=== PATIENT | female | born 1980 | race Caucasian/White ===

== ENCOUNTER 2018-11-21 08:24 | Inpatient (IN) | payer BC ==
[~2018-11-21 08:24] MED LIST: Dexamethasone 4 MG/ML SDV ONE; Glycopyrrolate 0.2 MG/ML 5 ML MDV ONE; Ketamine 50 MG in Sodium Chloride 0.9% 49.5 ML IV SCH; Ketamine 500 MG/5 ML MDV IV SCH; Lidocaine 2% 100 MG/5 ML Syringe IVPUSH SCH; Neostigmine Methylsulfate 1 MG/ML 5 ML Syringe ONE; Ondansetron 4 MG/2 ML SDV ONE; Propofol 200 MG/20 ML SDV ONE; Rocuronium 50 MG/5 ML Vial ONE; Succinylcholine 200 MG/10 ML MDV ONE; cefOXitin 2 GM Vial ONE; fentaNYL 250 MCG/5 ML SDV ONE
[2018-11-21] MEDS ORDERED: Lactated Ringers 1,000 ML ONE (08:28)
[2018-11-21] MEDS ORDERED: Gabapentin 300 MG Cap PO ONE (08:45)
[2018-11-21] MEDS ORDERED: Scopolamine 1.5 MG Transdermal Patch TOP ONE (08:45)
[2018-11-21] MEDS ORDERED: Celecoxib 200 MG Cap PO ONE (08:45)
[2018-11-21] MEDS ORDERED: Acetaminophen 500 MG Tab PO ONE (08:45)
[2018-11-21] MEDS ORDERED: Dextrose 5%-Lactated Ringers 1,000 ML IV SCH (09:00)
[2018-11-21] MEDS ORDERED: Albuterol/Ipratropium 3.0-0.5 MG/3 ML Neb Soln NEB ONE (09:30)
[2018-11-21] MEDS ORDERED: cefOXitin 2 GM in Sodium Chloride 0.9% 50 ML IV ONE (10:00)
[2018-11-21] MEDS ORDERED: fentaNYL 100 MCG/2 ML SDV ONE ×2 (10:57→12:06)
[2018-11-21] MEDS ORDERED: HYDROmorphone 0.5 MG/0.5 ML Syringe IVPUSH PRN (13:51)
[2018-11-21] MEDS ORDERED: Albuterol/Ipratropium 3.0-0.5 MG/3 ML Neb Soln INH PRN (13:51)
[2018-11-21] MEDS ORDERED: HYDROmorphone 1 MG/ML Syringe IV PRN (13:51)
[2018-11-21] MEDS ORDERED: Ondansetron 4 MG/2 ML SDV IVPUSH PRN (13:53)
[2018-11-21] MEDS ORDERED: hydrOXYzine HCl 100 MG/2 ML SDV IM PRN (13:56)
[2018-11-21] MEDS ORDERED: Metoclopramide 10 MG/2 ML SDV IVPUSH PRN (13:56)
[2018-11-21] MEDS ORDERED: diphenhydrAMINE 50 MG/ML SDV IVPUSH PRN (13:56)
[2018-11-21] MEDS ORDERED: Labetalol 20 MG/4 ML Syringe IVPUSH PRN (13:56)
[2018-11-21] MEDS: Albuterol/Ipratropium 3.0-0.5 MG/3 ML Neb Soln INH SCH ×2 (15:20→21:10)
[2018-11-21] MEDS: Lidocaine 0.4%/D5W 2 GM/500 ML BAG IV SCH (15:52)
[2018-11-21] MEDS ORDERED: MVI, Adult with Vitamin K 10 ML, Thiamine 200 MG, Chromium/Copper/Mang/Selen/Zn 1 ML in... IV SCH ×4 (16:00)
[2018-11-21] MEDS ORDERED: Pantoprazole 40 MG Vial IVPUSH SCH (16:00)
[2018-11-21] MEDS: Gabapentin 250 MG/5 ML Solution ML 470 ML Bottle PO SCH ×2 (16:12→21:11)
[2018-11-21] MEDS: Acetaminophen 325 MG Tab PO SCH ×2 (16:12→21:12)
[2018-11-21] MEDS: cefOXitin 2 GM in Sodium Chloride 0.9% 50 ML IV SCH ×2 (16:22→22:09)
[2018-11-21] MEDS: Heparin Sodium 5,000 Units/ML Vial SUBCUT SCH (19:24)
[2018-11-21] MEDS: Montelukast 10 MG Tab PO SCH (21:12)
[2018-11-21] MEDS: Dextrose 5%-Lactated Ringers 1,000 ML IV SCH (22:11)
[2018-11-22] MEDS ORDERED: Iopamidol 510 MG/ML 50 ML SDV PO ONE (03:01)
[2018-11-22] MEDS: Acetaminophen 325 MG Tab PO SCH ×4 (03:59→21:46)
[2018-11-22] MEDS: cefOXitin 2 GM in Sodium Chloride 0.9% 50 ML IV SCH (04:23)
[2018-11-22] MEDS: Dextrose 5%-Lactated Ringers 1,000 ML IV SCH (04:23)
[2018-11-22] MEDS: Albuterol/Ipratropium 3.0-0.5 MG/3 ML Neb Soln INH SCH ×4 (07:46→20:55)
[2018-11-22] MEDS ORDERED: Dextrose 5%-Lactated Ringers 1,000 ML IV SCH (08:00)
[2018-11-22] MEDS: FLUoxetine 20 MG Cap PO SCH (09:02)
[2018-11-22] MEDS: Celecoxib 200 MG Cap PO SCH (09:03)
[2018-11-22] MEDS: Heparin Sodium 5,000 Units/ML Vial SUBCUT SCH ×2 (09:03→19:41)
[2018-11-22] MEDS: Gabapentin 250 MG/5 ML Solution ML 470 ML Bottle PO SCH ×3 (09:03→20:43)
[2018-11-22] MEDS: SCOPOLAMINE PATCH CHECK TOP SCH (09:03)
--- NOTE | 2018-11-22 09:34 | CRLCR ---
INDICATION: Postoperative gastric bypass. TECHNIQUE: Two upright abdomen views are obtained following swallowing of oral contrast. The radiographs are performed 15 minutes apart. FINDINGS: Surgical drain is present in left upper quadrant. Oral contrast opacifies the lower esophagus, and the gastric pouch on the initial view. On the 15 minute delayed radiograph, oral contrast has cleared from the lower esophagus and opacifies the small bowel in the mid abdomen and left lower abdomen. No evidence of contrast extravasation from the lumen of gastrointestinal tract. Metallic surgical clips are seen in the right upper quadrant. Impression: No apparent bowel obstruction nor postoperative complication evident. Dictated by Yunier Houston MD @ Nov 22 2018 9:29AM Signed by Dr. Yunier Houston @ Nov 22 2018 9:33AM
[2018-11-22] MEDS: Lidocaine 0.4%/D5W 2 GM/500 ML BAG IV SCH (11:19)
[2018-11-22] MEDS: MVI, Adult with Vitamin K 10 ML, Thiamine 200 MG, Chromium/Copper/Mang/Selen/Zn 1 ML in... IV SCH ×8 (14:49→15:39)
[2018-11-22] MEDS ORDERED: Pantoprazole 40 MG Delayed-Release Granules 1 Packet PO SCH (16:00)
[2018-11-22] MEDS: Montelukast 10 MG Tab PO SCH (20:55)
[2018-11-23] MEDS: Acetaminophen 325 MG Tab PO SCH ×2 (03:25→09:36)
[2018-11-23] MEDS: Albuterol/Ipratropium 3.0-0.5 MG/3 ML Neb Soln INH SCH ×2 (08:13→10:38)
[2018-11-23] MEDS ORDERED: Cyanocobalamin (Vitamin B12) 1,000 MCG/ML SDV IM ONE (09:00)
[2018-11-23] MEDS: Celecoxib 200 MG Cap PO SCH (09:36)
[2018-11-23] MEDS: Heparin Sodium 5,000 Units/ML Vial SUBCUT SCH (09:36)
[2018-11-23] MEDS: Gabapentin 250 MG/5 ML Solution ML 470 ML Bottle PO SCH (09:36)
[2018-11-23] MEDS: SCOPOLAMINE PATCH CHECK TOP SCH (09:37)
[2018-11-23] MEDS: FLUoxetine 20 MG Cap PO SCH (09:37)
--- NOTE | 2018-11-24 10:41 | DISCH ---
FINAL DIAGNOSES: 1. Morbid obesity. 2. Marked hepatomegaly. 3. Paraesophageal diaphragmatic hernia associated with mediastinal lipoma. 4. History of asthma. 5. History of depression. OPERATIVE PROCEDURES: These were done on 11/21/2018. 1. Laparoscopic sleeve gastrectomy. 2. Nam-Cut needle liver biopsy. 3. Repair of paraesophageal diaphragmatic hernia. 4. Excision of mediastinal lipoma. SUMMARY: This is a 38-year-old presenting with longstanding morbid obesity and increasingly significant comorbidities. After preoperative evaluation and discussion, the patient wished to proceed with a sleeve gastrectomy. This was done on the date of procedure along with the additional concurrent procedures as listed above. Postoperatively, her oral intake was a little bit slow, but appeared to be satisfactory. At this point, we will discharge and she will be sent home with only Tylenol and Celebrex for pain which is what she is going to require postoperatively. Otherwise, she will be continuing her usual home medications, but the vitamin supplements need to be held until after 1st appointment. She will be instructed to stay on a step-2 diet for 1 month postoperatively, i.e., until 12/21/2018 and follow up with Kecia Mejia at [facility] on 12/01/2018 at 10:30.
--- NOTE | 2018-11-24 13:41 | OR ---
DATE OF PROCEDURE: 11/21/2018 SURGEON: Jose Fontaine MD PREOPERATIVE DIAGNOSIS: Morbid obesity. POSTOPERATIVE DIAGNOSES: 1. Morbid obesity. 2. Marked hepatomegaly. 3. Paraesophageal diaphragmatic hernia. 4. Mediastinal lipoma. OPERATIVE PROCEDURES: Diagnostic laparoscopy with: 1. Laparoscopic sleeve gastrectomy (69548). 2. Nam-Cut needle liver biopsy (39199). 3. Repair of paraesophageal diaphragmatic hernia (26612). 4. Excision of mediastinal lipoma (11654). ANESTHESIA: General. WELDING PANTOGRAPH OPERATOR: Kecia Mejia PA-C. INDICATION FOR PROCEDURE: This is a 38-year-old female presenting with longstanding morbid obesity and increasingly significant comorbidities. After preoperative evaluation and discussion, she wished to proceed with a sleeve gastrectomy. Potential risks of procedure including bleeding, infection, leaks from staple line, as well as the possibility of cardiopulmonary, septic, or hemorrhagic complications leading to were discussed, and the patient wishes to proceed. DETAILS OF PROCEDURE: The patient was taken to the operating room and placed in a supine position. After general endotracheal anesthesia was induced, she was converted to a lithotomy position and the abdomen prepped and draped. At 15 cm inferior and 5 cm left of the xiphoid process, a transverse incision was made and the peritoneal cavity entered under direct vision with an Optiview trocar, inflated to 15 mmHg pressure with CO2. Laparoscope was then reinserted. No underlying trocar insertion site injuries were seen. Five additional trocars were then placed across the mid abdomen and bilateral transversus abdominis plane blocks were placed. Additional inspection showed a marked hepatomegaly with the liver being roughly 2 to 3 times normal in size and grossly fatty infiltrated. Given this, Nam-Cut needle biopsy was obtained from left lobe of liver. Minimal bleeding from the biopsy site was controlled with electrocautery. The liver was then retracted anteriorly. The patient was noted to have a moderate-sized paraesophageal diaphragmatic hernia with prolapse of some perigastric fat and some of the fundus in a plane anterior to the course of the esophagus. The peritoneum overlying this was incised and the hernia reflected downward. During the course of the dissection of the diaphragmatic hernia, a mediastinal lipoma was encountered and this was excised to facilitate more adequate closure of the defect, which was then closed with 0 Ethibond sutures reinforced with PTFE pledgets. Beginning in the mid greater curvature, the omentum was then divided away from the stomach with Harmonic Scalpel. This was continued upward to include the highest and posterior short gastric vessels. The tissue along the left rochelle of the diaphragm was dissected free to avoid any excess stomach to be left in place in that area. The omentum was then divided distally from the mid greater curvature initially with Harmonic scalpel. As it became more thick, it was divided with ROHINI mesenteric loads and was continued up to 0.2 cm proximal to the pylorus. The resection phase then began after marking out the stomach such that there would not be an overtightening of the area of incisura angularis. The first 3 firings were standard ROHINI black loads beginning 2 cm proximal to the pylorus and extending underneath the incisura angularis. Following these initial 3 firings, a 32-Cuban suction tube was then placed orally per Anesthesia and positioned along the lesser curvature of the stomach and from there into the antrum, after which, positioned against the lesser curvature of stomach, suction was applied, and the remainder of the gastrectomy resection continued with a combination of reinforced black and purple loads. At the apex of the resection, the division extended slightly off of the stomach, so as to avoid stapling onto the esophagus. At that point, the staple line was inspected. To limit the chance of leaks at the area of the esophagogastric junction and proximal stomach, 2 [id number] seromuscular stitches were then placed using 0 Ethibond sutures. The entire staple line was then reinforced with fibrin sealant focusing on the distal and proximal ends. Omentum was then placed along the entire length of the staple line with the fibrin sealant that stayed in place without sutures. With the duodenum then being compressed and the suction tube now off suction, air was injected into the stomach, and with the gastrectomy staple line being submerged with antibiotic-containing saline solution, there were no leaks or other problems evident. The gastric specimen was then delivered through the left lateral trocar site, and at that point, no further problems were noted. A single Álvaro-Lee drain was taken from the left lateral trocar site up to the area of the esophagogastric junction, from there into the splenic fossa. The trocars were then sequentially removed and peritoneal cavity deflated. Incisions were closed with some 4-0 Vicryl skin stitch, which was also used to affix the drain. The patient was taken to the recovery room in satisfactory condition. Physician prosthetic assistant, Kecia Mejia, played an essential role in assisting in this case helping to position the patient, retract structures as needed, as well as suturing and cutting sutures when indicated. Her presence improved the patient's safety and decreased operative time. Jose Fontaine MD /[id number]
--- NOTE | 2018-11-24 13:56 | PN ---
DATE OF SERVICE: 11/22/2018 The patient is postop day #1 from a laparoscopic sleeve gastrectomy and diaphragmatic hernia repair. Clinically, she has had no major problems. Her pain control is satisfactory without additional narcotics, and urine output has been quite good. We will go up to a step- 2 diet today, restart her Prozac, and then maximize activity and work with pulmonary toilet. She may be ready for discharge home tomorrow. Jose Fontaine MD /[id number]
== END 2018-11-23 11:35 | disposition home or self-care (01) | DRG 403 ==
LOC: JP.SDS 08:24 → JP.MS 08:24 → EDSTATUS 11:00 → JP.MS 13:35
PROVIDERS: ADMIT Surgery; ATTEND Surgery
PROC: 0DB64Z3 Excision of Stomach, Percutaneous Endoscopic Approach, Vertical (ICD-10-PCS; principal; 2018-11-21)
PROC: 0FB24ZX Excision of Left Lobe Liver, Percutaneous Endoscopic Approach, Diagnostic (ICD-10-PCS; 2018-11-21)
PROC: 0WBC4ZZ Excision of Mediastinum, Percutaneous Endoscopic Approach (ICD-10-PCS; 2018-11-21)
PROC: 0BQT4ZZ Repair Diaphragm, Percutaneous Endoscopic Approach (ICD-10-PCS; 2018-11-21)
DX: E66.01 Morbid (severe) obesity due to excess calories (principal); R16.0 Hepatomegaly, not elsewhere classified; K44.9 Diaphragmatic hernia without obstruction or gangrene; D17.1 Benign lipomatous neoplasm of skin and subcutaneous tissue of trunk; J45.909 Unspecified asthma, uncomplicated; F32.9 Major depressive disorder, single episode, unspecified; G47.33 Obstructive sleep apnea (adult) (pediatric); Z99.81 Dependence on supplemental oxygen; Z90.49 Acquired absence of other specified parts of digestive tract; Z88.0 Allergy status to penicillin; Z91.09 Other allergy status, other than to drugs and biological substances; Z68.41 Body mass index [BMI] 40.0-44.9, adult
CPT/HCPCS: 36415; 74240; 81025; 86850; 86900; 86901; 88304; 88307; 88313; 94640; 94762; A9270-GY; C9113; J0171; J0330; J0694; J1100; J1644; J2001; J2405; J2704; J2710; J2795; J3010; J3411; J3420; J3490; J7042; J7050; J7120; J7620-GY; Q9966